=== PATIENT | female | born 1975 | race Caucasian/White ===

== ENCOUNTER 2018-02-16 22:02 | Observation (INO) | payer BC ==
[2018-02-16 22:56] LABS: #Basophils 0.1 thou/uL (0.0-0.2); #Eosinphils 0.1 thou/uL (0.0-0.7); #Lymphocytes 1.9 thou/uL (1.20-3.40); #Monocytes 0.8 thou/uL (0.11-0.59); #Neutrophils 6.4 thou/uL (1.40-6.50); %Basophils 0.8 % (0.0-1.0); %Eosinophils 1.6 % (0.0-10.0); %Lymphocytes 20.7 % (21.0-51.0); %Monocytes 8.5 % (0.0-10.0); %Neutrophils 68.4 % (42.0-75.0); Mean Corpuscular HGB CONC 33.5 g/dL (32.0-36.0); Mean Corpuscular Hemoglobin 29.9 pg (27.0-31.0); Mean Corpuscular Volume 89.4 fl (81.0-99.0); Mean Platelet Volume 7.3 fL (7.4-10.4); Platelet Count 286 thou/uL (130-400); RBC Distribution Width 11.7 % (11.5-14.5); Red Blood Cell (RBC) Count 4.67 mill/uL (4.20-5.40); White Blood Cell (WBC) Count 9.3 thou/uL (4.8-10.8)
[2018-02-16 23:10] LABS: PTT 25.3 SEC (22.9-36.1); Prothrombin Time 13.3 SEC (12.0-14.7)
[2018-02-16 23:16] LABS: ALT (SGPT) 18 U/L (8-55); AST (SGOT) 20 U/L (5-34); Albumin 4.7 g/dL (3.5-5.0); Alkaline Phosphatase 46 U/L (40-150); Anion Gap 12 mmol/L (10-20); BUN (Urea Nitrogen) 16 mg/dL (7.0-18.7); Bilirubin, Total 0.5 mg/dL (0.2-1.2); CK (CPK) 89 U/L (29-168); Calc. Creatinine Clearance 0 mL/min (70-130); Carbon Dioxide 26 mmol/L (22-29); Chloride 103 mmol/L (98-107); Estimated GFR-MDRD 67; Globulin 3.3 g/dL (2.4-3.5); Glucose 118 mg/dL (70-105); Potassium 3.4 mmol/L (3.5-5.1); Sodium 138 mmol/L (136-145)
[2018-02-17] MEDS ORDERED: Adacel (T-DAP) 0.5 ML VIAL ONE (01:07)
[2018-02-17] MEDS ORDERED: Acetaminophen 325 MG TAB PO PRN ×2 (02:02→09:50)
[2018-02-17] MEDS ORDERED: Sodium Chloride 0.9% 1,000 ML IV SCH (02:15)
[2018-02-17] MEDS ORDERED: Potassium Chloride 20 MEQ TAB PO SCH (02:15)
[2018-02-17 02:37] VITALS: BMI 24.9
[2018-02-17 05:14] LABS: #Basophils 0.1 thou/uL (0.0-0.2); #Eosinphils 0.1 thou/uL (0.0-0.7); #Lymphocytes 2.9 thou/uL (1.20-3.40); #Monocytes 0.8 thou/uL (0.11-0.59); #Neutrophils 5.4 thou/uL (1.40-6.50); %Basophils 0.7 % (0.0-1.0); %Eosinophils 1.6 % (0.0-10.0); %Neutrophils 57.7 % (42.0-75.0); Hemoglobin 12.7 g/dL (12.0-16.0); Mean Corpuscular HGB CONC 33.1 g/dL (32.0-36.0); Mean Corpuscular Hemoglobin 29.8 pg (27.0-31.0); Mean Platelet Volume 7.3 fL (7.4-10.4); Platelet Count 259 thou/uL (130-400); RBC Distribution Width 11.6 % (11.5-14.5); Red Blood Cell (RBC) Count 4.27 mill/uL (4.20-5.40); White Blood Cell (WBC) Count 9.3 thou/uL (4.8-10.8)
[2018-02-17 05:24] LABS: Anion Gap 9 mmol/L (10-20); BUN (Urea Nitrogen) 11 mg/dL (7.0-18.7); Calc. Creatinine Clearance 105 mL/min (70-130); Calcium 8.6 mg/dL (7.8-10.44); Carbon Dioxide 25 mmol/L (22-29); Chloride 108 mmol/L (98-107); Estimated GFR-MDRD 87; Glucose 97 mg/dL (70-105); Potassium 4.2 mmol/L (3.5-5.1); Sodium 138 mmol/L (136-145)
[2018-02-17 08:30] VITALS: BP 90/55; TEMP 98.5
[2018-02-17] MEDS ORDERED: Heparin 5,000 UNITS/ML VIAL SC SCH (09:00)
[2018-02-17] MEDS ORDERED: HYDROcodone/Acetaminophen 5/325 mg Tablet PO PRN (09:50)
[2018-02-17] MEDS ORDERED: Senokot 8.6 MG TAB PO PRN (09:50)
[2018-02-17] MEDS ORDERED: Ondansetron ODT 4 MG TAB PO PRN (09:50)
[2018-02-17] MEDS ORDERED: Ondansetron HCl/PF 4 MG/2 ML Vial IVP PRN (09:50)
[2018-02-17] MEDS ORDERED: diphenhydrAMINE 25 MG CAP PO PRN (09:50)
[2018-02-17] MEDS ORDERED: Calcium Carbonate 500 MG ChewTAB PO PRN (09:50)
--- NOTE | 2018-02-17 09:56 | HP ---
CHIEF COMPLAINT: Snake bite. PRIMARY CARE PHYSICIAN: No PCP. HISTORY OF PRESENT ILLNESS: The patient is a very pleasant 42-year-old female, who presented to the ER after being bit by a copperhead on her right foot near her ankle around 8:45 last night. The amilcar ent actually took the picture and brought it into the ER. The patient does complain of some pain and tenderness localized to her right ankle. I did speak with the ER, who did not think patient need antivenom since the redness was very localize d to her right ankle. PAST MEDICAL HISTORY: No past medical history. PAST SURGICAL HISTORY: Bilateral knee surgery and adenoidectomy. SOCIAL HISTORY: The patient drinks socially. Denies any alcohol or drug use or smoking history. ALLERGIES: She is allergic to ASPIRIN. CURRENT MEDICATIONS: She takes none. REVIEW OF SYSTEMS: All negative except for the ones mentioned in the HPI. Constitutional: Weight loss or gain, ability to conduct usual activities. Skin: Rash, itching. Eyes: Double vision, pain. ENT/Mouth: Nose bleeding, neck stiffness, pain, tenderness. Cardiovascular: Palpitations, dyspnea on exertion, orthopnea. Respiratory: Shortness of breath, wheezing, cough, hemoptysis, fever or night sweats. Gastrointestinal: Poor appetite, abdominal pain, heartburn, nausea, vomiting, constipation, or diarr hea. Genitourinary: Urgency, frequency, dysuria, nocturia. Musculoskeletal: Pain, swelling. Neurologic/Psychiatric: Anxiety, depression. Allergy/Immunologic: Skin rash, bleeding tendency. PHYSICAL EXAMINATION: VITAL SIGNS: Blood pressure 132/82, pulse of 93, respirations 18, temperature 98.2, 97% on room air. GENERAL: She is awake, alert, and oriented x3, does not appear in any distress. HEENT: Normocephalic, atraumatic. NECK: No lymphadenopathy noted. CARDIOVASCULAR: S1, S2 present. No murmurs, rubs or gallops. RESPIRATORY: Lungs are clear to auscultation. No rhonchi or wheezes noted. ABDOMEN: Soft, nontender. Bowel sounds are present x2. EXTREMITIES: Lower extremity edema: Pedal pulses are present bilaterally. Right foot appears to be mildly erythematous with very tender to touch on light palpation, also has mild edema. SKIN: She does have a small wound to her right ankle around the snake bite. LABORATORY DATA: WBCs of 9.3, hemoglobin 14.0, hematocrit of 41.8. Chemistry: Sodium of 134, potas sium of 3.4, creatinine of 0.93. ASSESSMENT: The patient is a very pleasant 42-year-old female, who presented to the hospital with co mplaints of snake bite. 1. Snake bite. 2. Right ankle erythema. 3. Hypokalemia. PLAN: We will continue to monitor the patient overnight and monitor for worsening of redness or pain . The patient currently does not require any antivenom; however, if her erythema or swelling worsens , she might. I do not think at this point she needs any IV antibiotics. We will gently hydrate her with some fluids. We will replace the potassium and we will continue to monitor.
--- NOTE | 2018-02-18 08:31 | DIS ---
DATE OF DISCHARGE: 02/17/2018 The patient left against medical advice. Please note that the patient was not seen by me on the day of discharge. The patient was admitted e[facility] today by Dr. Perez for a snake bite. The patient decided to leave against medical advice. FINAL DIAGNOSES: 1. Snake bite. 2. Hypokalemia.
== END 2018-02-17 10:14 | disposition home or self-care (01) ==
LOC: ERS 22:02 → T4-B 02-17 01:49
PROVIDERS: ADMIT Internal Medicine; ATTEND Internal Medicine
DX: T63.091A Toxic effect of venom of other snake, accidental (unintentional), initial encounter (principal); E87.6 Hypokalemia; Z88.8 Allergy status to other drugs, medicaments and biological substances; Z53.21 Procedure and treatment not carried out due to patient leaving prior to being seen by health care provider
CPT/HCPCS: 36415; 80048; 80053; 82550; 85025; 85384; 85610; 85730; 86850; 86900; 86901; 90715; 96360; 96361; G0378